=== PATIENT | male | born 1950 | race Caucasian/White ===

== ENCOUNTER 2016-09-30 10:14 | Inpatient (IN) | payer OTHER, MEDICARE ==
[2016-09-30] VITALS (11 sets, daily range): BP systolic 139–201; BP diastolic 69–94; PULSE 59–89; RESP 18–20; TEMP 97.3–98.4; O2SAT 90–99
[~2016-09-30] VITALS: Ht 167.6 cm; Wt 156.2 kg
[2016-09-30] MEDS ORDERED: SODIUM CHLOR 0.9% 1000 ML INJ 1,000 ML IV ONE (10:16)
[2016-09-30 10:42] LABS: BASOPHIL # 0.1 TH/MM3 (0-0.2); BASOPHIL % 0.7 % (0.0-2.0); EOSINOPHIL # 0.2 TH/MM3 (0-0.4); EOSINOPHIL % 2.6 % (0.0-4.0); HEMO FLAGS DIFF FINAL; LYMPH % 26.4 % (9.0-44.0); LYMPHOCYTE # 2.2 TH/MM3 (1.0-4.8); MEAN CELL VOLUME 91.7 FL (80.0-100.0); MEAN CORPUSCULAR HEMOGLOBIN 31.1 PG (27.0-34.0); MEAN CORPUSCULAR HGB CONC 33.9 % (32.0-36.0); MONO % 11.5 % (0.0-8.0); NEUT % 58.8 % (16.0-70.0); PLATELET COUNT 214 TH/MM3 (150-450); RED BLOOD COUNT 4.69 MIL/MM3 (4.50-5.90); RED CELL DISTRIBUTION WIDTH 12.8 % (11.6-17.2); WHITE BLOOD COUNT 8.5 TH/MM3 (4.0-11.0)
[2016-09-30 10:43] LABS: I-STAT POTASSIUM 3.7 MMOL/L (3.5-4.9); I-STAT SODIUM 141 MMOL/L (138-146)
--- NOTE | 2016-09-30 10:46 | RADRPT ---
EXAM DATE/TIME: 09/30/2016 10:27 [facility] COMPARISON: No previous studies available for comparison. INDICATIONS : Stroke alert, left sided weakness. RADIATION DOSE: 56.35 CTDIvol (mGy) This report was verbally relayed by Dr. Yane Rossi to Dr. Contreras at 10: 41 MEDICAL HISTORY : Unable to obtain. SURGICAL HISTORY : Unable to obtain. ENCOUNTER: Initial ACUITY: 1 day PAIN SCALE: 0/10 LOCATION: cranial TECHNIQUE: Multiple contiguous axial images were obtained of the head. Using automated exposure control and adj ustment of the mA and/or kV according to patient size, radiation dose was kept as low as reasonably a chievable to obtain optimal diagnostic quality images. FINDINGS: CEREBRUM: The ventricles are normal for age. No evidence of midline shift, mass lesion, hemorrhage or acute in farction. No extra-axial fluid collections are seen. POSTERIOR FOSSA: The cerebellum and brainstem are intact. The 4th ventricle is midline. The cerebellopontine angle i s unremarkable. Calcified tentorium and gallstone. EXTRACRANIAL: Left-sided orbital prosthesis. SKULL: The calvaria is intact. No evidence of skull fracture. CONCLUSION: No acute intracranial findings. Low Davis MD on September 30, 2016 at 10:40 Board Certified Radiologist. This report was verified electronically.
[2016-09-30 10:48] LABS: APTT (PATIENT) 22.9 SEC (24.3-30.1); INTERNATIONAL NORMALIZED RATIO 0.9 RATIO; PROTHROMBIN TIME - PATIENT 9.6 SEC (9.8-11.6)
[2016-09-30] MEDS ORDERED: IOHEXOL 350 MG/ML 10 ML VIAL (for RAD DIAG) IV ONE (10:52)
--- NOTE | 2016-09-30 11:17 | PD ---
HPI Chief Complaint: Stroke Alert Time Seen by Provider: 10:16 Travel History International Travel<30 days: No Contact w/Intl Traveler<30days: No Traveled to known affect area: No History of Present Illness HPI Patient 65-year-old male presents emergency department for evaluation of left- sided weakness for the past 30 minutes. Patient states this happened to him last week when he went seen in a hospital in [place] he was told he was at increased risk of stroke because of a "flap" in his carotid. Patient states he started having numbness and tingling of his left upper extremity while eating breakfast. He then noticed some weakness. On arrival is GCS 15. States also been having some minimal difficulty emulating. Symptoms been constant and moderate in severity. PFSH Past Medical History Cardiovascular Problems: Yes (right carotid dissection) High Cholesterol: Yes Diabetes: No GERD: Yes Hepatitis: Yes (B and C...treated for C) Hypertension: Yes Tetanus Vaccination: < 5 Years Influenza Vaccination: Yes ?: Not Past Surgical History Ear Surgery: Yes (glass left eye) Social History Alcohol Use: No (former) Tobacco Use: No (former) Substance Use: No (former) Allergies-Medications (Allergen,Severity, Reaction): Coded Allergies: No Known Allergies (Unverified , 09/30/16) Reported Meds & Prescriptions Reported Meds & Active Scripts Active Reported Ranitidine (Ranitidine HCl) 150 Mg Tab 150 Mg PO DAILY Atorvastatin (Atorvastatin Calcium) 40 Mg Tab 40 Mg PO HS Triamterene-Hydrochlorothiazide 37.5-25 Mg Cap 1 Cap PO DAILY Lyrica (Pregabalin) 100 Mg Cap 100 Mg PO DAILY Tramadol (Tramadol HCl) 50 Mg Tab 50 Mg PO Q8H PRN Review of Systems Except as stated in HPI: all other systems reviewed are Neg Physical Exam Narrative GENERAL: Well-developed well-nourished no apparent distress SKIN: Focused skin assessment warm/dry. HEAD: Atraumatic. Normocephalic. EYES: Pupils equal and round. No scleral icterus. No injection or drainage. ENT: No nasal bleeding or discharge. Mucous membranes pink and moist. NECK: Trachea midline. No JVD. CARDIOVASCULAR: Regular rate and rhythm. No murmur appreciated. No carotid bruits. RESPIRATORY: No accessory muscle use. Clear to auscultation. Breath sounds equal bilaterally. GASTROINTESTINAL: Abdomen soft, non-tender, nondistended. Hepatic and splenic margins not palpable. MUSCULOSKELETAL: No obvious deformities. No clubbing. No cyanosis. No edema. NEUROLOGICAL: Awake and alert and oriented, GCS 15, patient has pronator drift of left upper extremity, cranial nerves II through XII are grossly intact and nonfocal, no ataxia. No slurred speech. Total NIH stroke scale of 3. PSYCHIATRIC: Appropriate mood and affect; insight and judgment normal. Data Data Last Documented VS Vital Signs Date Time Temp Pulse Resp B/P Pulse Ox O2 Delivery O2 Flow Rate FiO2 09/30/16 11:46 76 18 164/73 98 Nasal Cannula 2 09/30/16 10:52 98.4 Orders Diet Npo (09/30/16 Lunch) Activity Bed Rest (09/30/16 ) Electrocardiogram (09/30/16 ) I-Stat Creatinine (09/30/16 10:16) I-Stat Profile (09/30/16 10:16) Prothrombin Time / Inr (Pt) (09/30/16 10:16) Act Partial Throm Time (Ptt) (09/30/16 10:16) Complete Blood Count With Diff (09/30/16 10:16) Fibrinogen (09/30/16 10:16) Creatine Kinase (Cpk) (09/30/16 10:16) Troponin I (09/30/16 10:16) Ua Includes Microscopic (09/30/16 10:16) Drug Screen, Random Urine (09/30/16 10:16) Type And Screen (09/30/16 10:16) Ct Brain W/O Iv Contrast(Rout) (09/30/16 ) Chest, Single Ap (09/30/16 ) Cta Neck W Iv Contrast W 3d (09/30/16 10:16) Consult Neurology (09/30/16 ) Blood Glucose (09/30/16 10:16) Ecg Monitoring (09/30/16 10:16) Neuro Checks Q2HX12,Q4H (09/30/16 10:16) Nursing Bedside Swallow Assess .ONCE (09/30/16 10:16) Iv Access Insert/Monitor (09/30/16 10:16) NPO (09/30/16 10:16) Oximetry (09/30/16 10:16) Oxygen Administration (09/30/16 10:16) Sodium Chlor 0.9% 1000 Ml Inj (Ns 1000 M (09/30/16 10:16) Resp Oxygen Lux C Titrat 1-4 L (09/30/16 10:16) Cath For Specimen (09/30/16 10:16) Cta Brain W Iv Contrast W 3d (09/30/16 ) (Hub Use Only)Inp Phy Cons/Ref (09/30/16 ) Iohexol 350 Inj (Omnipaque 350 Inj) (09/30/16 10:52) Aspirin Chew (Aspirin Chew) (09/30/16 12:00) Admit Order (Ed Use Only) (09/30/16 ) Labs Laboratory Tests Test 09/30/16 09/30/16 10:21 11:50 White Blood Count 8.5 TH/MM3 Red Blood Count 4.69 MIL/MM3 Hemoglobin 14.6 GM/DL Bedside Hemoglobin 15.0 G/DL Hematocrit 43.0 % Bedside Hematocrit 44.0 % Mean Corpuscular Volume 91.7 FL Mean Corpuscular Hemoglobin 31.1 PG Mean Corpuscular Hemoglobin 33.9 % Concent Red Cell Distribution Width 12.8 % Platelet Count 214 TH/MM3 Mean Platelet Volume 9.3 FL Neutrophils (%) (Auto) 58.8 % Lymphocytes (%) (Auto) 26.4 % Monocytes (%) (Auto) 11.5 % Eosinophils (%) (Auto) 2.6 % Basophils (%) (Auto) 0.7 % Neutrophils # (Auto) 5.0 TH/MM3 Lymphocytes # (Auto) 2.2 TH/MM3 Monocytes # (Auto) 1.0 TH/MM3 Eosinophils # (Auto) 0.2 TH/MM3 Basophils # (Auto) 0.1 TH/MM3 CBC Comment DIFF FINAL Differential Comment Prothrombin Time 9.6 SEC Prothromb Time International 0.9 RATIO Ratio Activated Partial 22.9 SEC Thromboplast Time Fibrinogen 392 mg/dL Bedside Sodium 141 MMOL/L Bedside Potassium 3.7 MMOL/L Bedside Chloride 102 MMOL/L Bedside Blood Urea Nitrogen 22 MG/DL Bedside Creatinine 1.0 MG/DL Bedside Glucose 100 MG/DL Total Creatine Kinase 130 U/L Troponin I LESS THAN 0.02 NG/ML Blood Type A POSITIVE Antibody Screen NEGATIVE Blood Bank Comment Urine Color YELLOW Urine Turbidity CLEAR Urine pH 7.5 Urine Specific [place] 1.027 Urine Protein NEG mg/dL Urine Glucose (UA) NEG mg/dL Urine Ketones NEG mg/dL Urine Occult Blood NEG Urine Nitrite NEG Urine Bilirubin NEG Urine Urobilinogen LESS THAN 2.0 MG/DL Urine Leukocyte Esterase NEG Urine RBC 1 /hpf Urine WBC 1 /hpf Urine Opiates Screen NEG Urine Barbiturates Screen NEG Urine Amphetamines Screen NEG Urine Benzodiazepines Screen NEG Urine Cocaine Screen NEG Urine Cannabinoids Screen NEG MDM Medical Decision Making Medical Screen Exam Complete: Yes Emergency Medical Condition: Yes Interpretation(s) EKG shows sinus rhythm with left bundle branch block without Sgarbossa criteria. This is an abnormal EKG. no previous EKG for comparison. Differential Diagnosis Acute stroke, TIA, carotid dissection, atrial fibrillation, carotid stenosis. Narrative Course Patient was roomed in emergency department, he does have left-sided weakness on arrival with an NIH score of 3. He was activated as a stroke alert. Noncontrast CT head was negative, his CTA of the neck and brain shows carotid stenosis of the left carotid which is inconsistent with his current presentation. Last 24 hours Impressions Head CTA 09/30/16 0000 Signed Impressions: Service Date/Time: Friday, September 30, 2016 10:27 - CONCLUSION: CT brain within normal limits. Low Davis MD Head CT 09/30/16 0000 Signed Impressions: Service Date/Time: Friday, September 30, 2016 10:27 - CONCLUSION: No acute intracranial findings. Low Davis MD The patient after arrival started resolving and by the time he was off the CT table his weakness and nearly completely resolved. He was reassessed sometime later and is now completely resolved. He does not meet criteria for TPA. Initially hypertensive to a systolic of 200 his systolic was reduced 260 systolic without intervention. No indication for further lowering acutely. His had a bed was flat. Discussed with Dr. Carpio multiple times who states that the patient will likely be started on Plavix and will need admission for further workup. She agrees to hold TPA at this time as the patient is completely resolved. He was given a full dose aspirin. He is stable for medical admission. Patient was discussed with [facility] hospitalist on-call. Procedures Procedure Narrative Aggregate critical care time was 35] minutes. Time to perform other separately billable procedures was not included in the critical care time. My time did not include minutes spent treating any other patients simultaneously or on activities that did not directly contribute to the patient's treatment. The services I provided to this patient were to treat and/or prevent clinically significant deterioration that could result in: , disability, organ failure I provided critical care services requiring my management, as noted below: Chart data review, documentation time, medication orders and management, vital sign assessments/reviewing monitor data, ordering and reviewing lab tests, ordering and interpreting/reviewing x-rays and diagnostic studies, care of the patient and discussion of the patient with the admitting physicians. Diagnosis Primary Impression: TIA (transient ischemic attack) Qualified Code: G45.9 - Transient cerebral ischemia, unspecified type Admitting Information Admitting Physician Requests: Observation Condition: Stable Rian Contreras MD September 30, 2016 11:17
--- NOTE | 2016-09-30 11:34 | RADRPT ---
EXAM DATE/TIME: 09/30/2016 10:27 [facility] COMPARISON: No previous studies available for comparison. INDICATIONS : Stroke alert, left sided weakness IV CONTRAST: 75 cc Omnipaque 350 (iohexol) IV; Cumulative dose for multiple exams. RADIATION DOSE: 15.02 CTDIvol (mGy); Combined studies MEDICAL HISTORY : None SURGICAL HISTORY : None. ENCOUNTER: Initial ACUITY: 1 day PAIN SCALE: 0/10 LOCATION: neck Elevated flow velocities and ICA/CCA ratios have been found to correlate with increased degrees of vessel stenosis, calculated as percentage of diameter relative to a normal segment of distal ICA/CCA. TECHNIQUE: Volumetric scanning was performed using a multirow detector CT scanner. The data was post processed with a variety of visualization algorithms including full-volume maximum intensity projection, multip lanar sliding thin-slab reformation, curved-planar reformation, and surface-rendering techniques. Us ing automated exposure control and adjustment of the mA and/or kV according to patient size, radiatio n dose was kept as low as reasonably achievable to obtain optimal diagnostic quality images. FINDINGS: Branching pattern of the great vessels is normal. Calcific plaque is seen in the origin of the nomin ate artery and left subclavian artery. RIGHT CAROTID: There is a combination of soft and hard plaque in the origin of the right internal carotid compromisi ng lumen approximately 50-60%. Small ulceration is present. LEFT CAROTID: Similar findings are seen on the left with combination of hard and soft plaque. There is no dissecti on flap identified. VERTEBRALS: Both vertebral arteries are patent. CONCLUSION: 1. Calcific vascular disease as described above. Stenosis is not felt to be hemodynamically signifi cant. 2. There is however a large component of soft plaque evident. Sampson Rossi MD FACR on September 30, 2016 at 11:11 Board Certified Radiologist. This report was verified electronically.
[2016-09-30 11:37] LABS: CREATINE KINASE 130 U/L (39-308)
--- NOTE | 2016-09-30 11:39 | RADRPT ---
EXAM DATE/TIME: 09/30/2016 10:41 [facility] COMPARISON: No previous studies available for comparison. INDICATIONS : Stroke Alert. Patient complains of dizziness, weakness, numbness, and tingling in left arm. Pt. has h ad a similar episode a week ago. MEDICAL HISTORY : None. SURGICAL HISTORY : None. ENCOUNTER: Initial ACUITY: 1 day PAIN SCORE: 0/10 LOCATION: Bilateral chest FINDINGS: Lungs are under aerated with mild interstitial edema. Heart is minimally enlarged. There is no alve olar consolidation, pleural effusion, or pneumothorax. CONCLUSION: Under aerated with mild cardiomegaly. Patient may have mild interstitial edema present. Sampson Rossi MD FACR on September 30, 2016 at 11:16 Board Certified Radiologist. This report was verified electronically.
[2016-09-30] MEDS ORDERED: TRAM50TA PO (11:44)
[2016-09-30] MEDS ORDERED: RANI150T PO (11:44)
[2016-09-30] MEDS ORDERED: LYRI100C PO (11:44)
[2016-09-30] MEDS ORDERED: ATOR40TA16 PO (11:44)
[2016-09-30] MEDS ORDERED: TRIA37.53 PO (11:44)
--- NOTE | 2016-09-30 11:47 | RADRPT ---
EXAM DATE/TIME: 09/30/2016 10:27 [facility] COMPARISON: No previous studies available for comparison. INDICATIONS : Stroke alert, left sided weakness IV CONTRAST: 75 cc Omnipaque 350 (iohexol) IV ; Cumulative dose for multiple exams. RADIATION DOSE: 15.02 CTDIvol (mGy) ; Combined studies MEDICAL HISTORY : None SURGICAL HISTORY : None. ENCOUNTER: Initial ACUITY: 1 day PAIN SCALE: 0/10 LOCATION: cranial TECHNIQUE: Volumetric scanning was performed using a multi-row detector CT scanner. The data was post processed with a variety of visualization algorithms including full volume maximum intensity projection, multi -planar sliding thin slab reformation, curved planar reformation, and surface rendering techniques. Using automated exposure control and adjustment of the mA and/or kV according to patient size, radiat ion dose was kept as low as reasonably achievable to obtain optimal diagnostic quality images. FINDINGS: There is excellent visualization of the major intracranial arteries out to the second-order branch ve ssels. There is no evidence for aneurysm, vessel truncation or stenosis, and no evidence for vascula r malformation. CONCLUSION: CT brain within normal limits. Low Davis MD on September 30, 2016 at 11:37 Board Certified Radiologist. This report was verified electronically.
[2016-09-30] MEDS ORDERED: ASPIRIN 81 MG CHEW TAB CHEW ONE (12:00)
[2016-09-30 12:19] LABS: AMPHETAMINE, URINE NEG (NEG); BARBITURATES, URINE NEG (NEG); COCAINE, URINE NEG (NEG)
[2016-09-30 12:24] LABS: BLOOD, URINE NEG (NEG); GLUCOSE,URINE NEG (NEG); KETONE, URINE NEG (NEG); NITRITE,URINE NEG (NEG); PH, URINE 7.5 (5.0-8.5); URINE COLOR YELLOW (YELLW/STRAW)
[2016-09-30] MEDS ORDERED: GLUCAGON 1 MG/ML VIAL OTHER PRN (12:45)
[2016-09-30] MEDS ORDERED: DEXTROSE 50% IN WATER 50 ML VIAL(D50) IV PUSH PRN (12:45)
[2016-09-30] MEDS ORDERED: SODIUM CHLORIDE 0.9% FLUSH 5 ML FLUSH IV FLUSH PRN (12:45)
[2016-09-30] MEDS ORDERED: ENALAPRILAT 1.25 MG/ML VIAL IV PUSH PRN (13:00)
--- NOTE | 2016-09-30 13:37 | HHI.HP ---
HPI Service [facility] Primary Care Physician Jose Eduardo Johns MD Admission Diagnosis TIA Diagnoses: Chief Complaint: left arm numbness/weakness Travel History International Travel<30 Days: No Contact w/Intl Traveler <30 Da: No Traveled to Known Affected Are: No History of Present Illness Written by Sun Muller, acting as scribe for Dr. Reagan on 09/30/16 at 13: 51. 65-year-old male with history of hypertension, hepatitis C s/p treatment, recent TIA, carotid artery "flap", and left eye prosthesis, presents with acute onset of left arm numbness and weakness. The patient reports around 9am this morning 09/30 while having breakfast he started experiencing left arm numbness and weakness. The numbness was worse at the left 3rd, 4th, and 5th digits. He denies any other numbness or weakness throughout any other extremities. He denies any lightheadedness, dizziness, blurred vision, dysphasia/aphasia, chest pain, shortness of breath, or abdominal complaints. He does state that he didn' t feel "quite right". He had his friend transport him to the hospital. The symptoms lasted approximately 30minutes and has now mostly resolved, still with some minimal paresthesia at the left 3rd, 4th, 5th digits. He reports a recent history of TIA, approximately 1 week ago on September 24 he was in [place] when he experienced acute left arm weakness. He went to the hospital at that time. He states his imaging was mostly normal except for a slight "tear" in one of his carotids. He was started on baby aspirin and blood pressure medication and discharged home. The patient filled his prescriptions after arriving back in [place] and has now been back on his medications for the last 3-4 days. The patient is from [place] however has been living down here for 1.5years. His PCP is Dr. Delgado. Review of Systems Except as stated in HPI: all other systems reviewed are Neg Past Family Social History Past Medical History Hypertension Blind left eye Carotid artery "tear" per the patient Hepatitis C, treated with Harvoni, completed 12weeks of treatment 3 months ago Past Surgical History Left eye removed from piece of metal in 1992 Dental extractions Reported Medications Aspirin 81mg daily Lyrica 100mg tid Tramadol 50mg q8h prn Triamterene-HCTZ 37.5-25mg daily Zantac 150mg daily Allergies: Coded Allergies: No Known Allergies (Unverified , 09/30/16) Active Ordered Medications Current Medications Medications (Trade) Dose Ordered Sig/Rae Route Start Time Stop Time Status Last Admin (NS 1000 ml Inj) 1,000 ml @ 70 mls/hr [id number] ONCE IV 09/30/16 10:16 10/01/16 00:33 09/30/16 11:19 (NS Flush) 2 ml BID IV FLUSH 09/30/16 21:00 (NS Flush) 2 ml UNSCH PRN IV FLUSH 09/30/16 12:45 (Aspirin Chew) 81 mg DAILY PO 10/01/16 09:00 (NovoLOG SUPPLEMENTAL SCALE) 1 ACHS SQ 09/30/16 16:00 (D50w (Vial) Inj) 50 ml UNSCH PRN IV PUSH 09/30/16 12:45 (Glucagon Inj) 1 mg UNSCH PRN OTHER 09/30/16 12:45 (Vasotec Inj) 1.25 mg Q6H PRN IV PUSH 09/30/16 13:00 (Lipitor) 40 mg HS PO 09/30/16 21:00 (Pepcid) 20 mg DAILY PO 10/01/16 09:00 Family History Father with stroke in his 50s-60s and small MIs Mother with stoke also in her 50s-60s Social History Smoked tobacco 1PPD for 25years, quit 8years ago Denies any alcohol or drugs, quit 20 years ago History of IVDU and Cocaine over 20years ago 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 SKIN: No rashes, ecchymoses or lesions. Cool and dry. HEAD: Atraumatic. Normocephalic. EYES: Left eye prosthesis. Right eye pupil round and reactive. EOMI. No scleral icterus. No injection or drainage. ENT: Nose without bleeding, purulent drainage or septal hematoma. Airway patent. NECK: Trachea midline. No JVD. Supple, nontender. CARDIOVASCULAR: Regular rate and rhythm without murmurs, gallops, or rubs. RESPIRATORY: Clear to auscultation. Breath sounds equal bilaterally. No wheezes , rales, or rhonchi. GASTROINTESTINAL: Abdomen soft, non-tender, nondistended. . No guarding. Normoactive bowel sounds x4. MUSCULOSKELETAL: Extremities without clubbing, cyanosis, or edema. No joint tenderness, effusion, or edema noted. No calf tenderness. Negative Homans sign bilaterally. NEUROLOGICAL: Awake and alert. Cranial nerves II through XII intact. Motor and sensory grossly within normal limits. 5/5 muscle strength in all muscle groups. Normal speech. Patellar DTR 2+ bilaterally. Distal upper and lower extremity sensation equal and intact. No facial droop/lid lag/tongue deviation. Laboratory Laboratory Tests Test 09/30/16 09/30/16 10:21 11:50 White Blood Count 8.5 Red Blood Count 4.69 Hemoglobin 14.6 Bedside Hemoglobin 15.0 Hematocrit 43.0 Bedside Hematocrit 44.0 Mean Corpuscular Volume 91.7 Mean Corpuscular Hemoglobin 31.1 Mean Corpuscular Hemoglobin 33.9 Concent Red Cell Distribution Width 12.8 Platelet Count 214 Mean Platelet Volume 9.3 Neutrophils (%) (Auto) 58.8 Lymphocytes (%) (Auto) 26.4 Monocytes (%) (Auto) 11.5 Eosinophils (%) (Auto) 2.6 Basophils (%) (Auto) 0.7 Neutrophils # (Auto) 5.0 Lymphocytes # (Auto) 2.2 Monocytes # (Auto) 1.0 Eosinophils # (Auto) 0.2 Basophils # (Auto) 0.1 CBC Comment DIFF FINAL Differential Comment Prothrombin Time 9.6 Prothromb Time International 0.9 Ratio Activated Partial 22.9 Thromboplast Time Fibrinogen 392 Bedside Sodium 141 Bedside Potassium 3.7 Bedside Chloride 102 Bedside Blood Urea Nitrogen 22 Bedside Creatinine 1.0 Bedside Glucose 100 Total Creatine Kinase 130 Troponin I LESS THAN 0.02 Blood Type A POSITIVE Antibody Screen NEGATIVE Blood Bank Comment Urine Color YELLOW Urine Turbidity CLEAR Urine pH 7.5 Urine Specific [place] 1.027 Urine Protein NEG Urine Glucose (UA) NEG Urine Ketones NEG Urine Occult Blood NEG Urine Nitrite NEG Urine Bilirubin NEG Urine Urobilinogen LESS THAN 2.0 Urine Leukocyte Esterase NEG Urine RBC 1 Urine WBC 1 Urine Opiates Screen NEG Urine Barbiturates Screen NEG Urine Amphetamines Screen NEG Urine Benzodiazepines Screen NEG Urine Cocaine Screen NEG Urine Cannabinoids Screen NEG Result Diagram: 09/30/16 1021 Imaging Last Impressions Head CTA 09/30/16 0000 Signed Impressions: Service Date/Time: Friday, September 30, 2016 10:27 - CONCLUSION: CT brain within normal limits. Low Davis MD Head CT 09/30/16 0000 Signed Impressions: Service Date/Time: Friday, September 30, 2016 10:27 - CONCLUSION: No acute intracranial findings. Low Davis MD Assessment and Plan Problem List: (1) TIA (transient ischemic attack) ICD Code: G45.9 Status: Acute Assessment and Plan 65-year-old male with history of hypertension, hepatitis C s/p treatment, recent TIA, carotid artery "flap", and left eye prosthesis, presents with acute onset of left arm numbness and weakness. TIA: acute neurological deficit with acute onset LUE numbness/weakness, now symptoms improved. Head CT images reviewed, unremarkable. Head CTA unremarkable. -Consult neurology -Check echo, EEG, and brain MRI -Check lipid profile, started on statin -Check HgbA1c -NIHSS, neuro checks, monitor on telemetry -PT/OT/ST eval -continue patient's aspirin, neurology added plavix Carotid Artery Stenosis: Neck CTA shows combination of soft and hard plaque in the origin of the right ICA compromising lumen approx. 50-60%; Small ulceration is present. Left internal carotid similar with combination of hard and soft plaque; no dissection flap identified. It appears stenosis is not felt to be hemodynamically significant, there is however a large component of soft plaque evident. -continue aspirin, plavix added as above -outpatient follow up with vascular surgery, repeat carotid U/S in 6months Hypertension: chronic -hold patient's triamterene-HCTZ for now -allow permissive hypertension -IV Vasotec prn SBP >200 DVT Prophylaxis: teds/SCDs Discussed Condition With Patient, ER MD, Dr. Carpio Physician Certification 2 Midnight Certification Type: Admission for Inpatient Services Order for Inpatient Services The services are ordered in accordance with Medicare regulations or non- Medicare payer requirements, as applicable. In the case of services not specified as inpatient-only, they are appropriately provided as inpatient services in accordance with the 2-midnight benchmark. Estimated LOS (days): 2 days is the estimated time the patient will need to remain in the hospital, assuming treatment plan goals are met and no additional complications. Post-Hospital Plan: Home Notes: This note was transcribed by scribe [Sun Muller]. I, Dr. Keanu Reagan personally performed the history, physical exam, and medical decision making; and confirmed the accuracy of the information in the transcribed note. Authenticated by Dr. Keanu Reagan on 09/30/16 at 19:34. Sun Muller PA-C September 30, 2016 13:37 Keanu Reagan MD September 30, 2016 19:34
[2016-09-30] MEDS: CLOPIDOGREL 75 MG TAB PO SCH (14:29)
--- NOTE | 2016-09-30 15:16 | MB ---
cc: MAHENDRA FREEMAN M.D. DATE OF CONSULTATION: 09/30/2016 1949 REASON FOR CONSULTATION Stroke alert, onset of symptoms approximately 30 minutes prior to arrival. HISTORY OF PRESENT ILLNESS This is a 65-year-old man who presents to emergency department for evaluation of left-sided weakness for the past 30 minutes. He states it happened to him about a week ago when he was in [place] and was fishing, had a massage prior and ended up with left-sided weakness and he was told that he had a possible flap for dissection of the carotid. They put him on aspirin. His workup was unremarkable and he was discharged. Today he started having numbness, tingling in left upper extremity, not really in the leg, but he has chronic neuropathy, weakness and clumsiness. I believe his NIH when he came in was 3. No slurred speech. He did go to CAT scan and by the time he came back his symptoms were nearly resolved and hence, he was not a candidate for TPA due to the fact of rapidly resolving symptoms. He states his fingers still feel a little tingly but he is near baseline. PAST MEDICAL HISTORY 1. Hyperlipidemia. 2. Reflux. 3. Hepatitis B and C, treated for C. 4. Hypertension. 5. Blind left eye, has artificial eye. SOCIAL HISTORY He used to drink heavily in the past, no longer, does not smoke or use any drugs any longer. ALLERGIES None reported. MEDICATION Home medications: He took aspirin for the last week since he was discharged from [place]. PHYSICAL EXAMINATION VITAL SIGNS: Temperature is 98.4, pulse 65, respiratory rate 19, blood pressure is 139/76, sating at 99% on 2 liters nasal cannula. NECK: His neck is supple. There are no bruits. HEART: Regular. LUNGS: Lungs are clear. NEUROLOGIC EXAMINATION He is awake, alert and oriented and fluent. His right pupil is reactive. Left eye is prosthetic. Does have extraocular movements. Face symmetrical. His tongue is midline. Normal hearing. Motor back there is no drift. No leg lag. He is a little clumsier on the left on [id number] but no past-pointing. His wind tunnel mechanic is symmetrical 5/5 throughout. DTRs are intact. Toes withdraws. Sensory is abnormal in his feet, that is his baseline and slightly to light touch in his fingertips. Gait is withheld. LABORATORY DATA His labs are reviewed. CBC is really unremarkable. Coag panel, his PTT is 22.9, PT 9.6, INR 0.9, fibrinogen 392. Chemistries glucose is 100, A1c is pending. Urine unremarkable. Toxicology was negative. IMAGING STUDIES Head CTA was performed and it was without any intracranial stenosis. CT of the head did not show any acute findings either. He did have a CTA of the carotids basically showing calcific vascular disease, right carotid soft and hard plaque at the origin of the right internal carotid, 50-60% stenosis, small ulceration present, left carotid, similar findings on the left with hard and soft plaque, no dissection flap identified. He does have however, what they described as a large component of soft plaque evident. IMPRESSION A 65-year-old man with stroke-like symptoms now resolved with likely from the right hemisphere with some carotid disease plaque, soft and hard plaque, no evidence reported of dissection. At this point in time workup should be ongoing. Will get an MRI of the brain. Will go ahead and put him on Plavix. Get a lipid panel and check his hemoglobin A1c. Lovenox and SCDs for DVT prophylaxis. Watch his blood pressure, treat should his systolic go over 210, diastolic over 110. Can maintain him on aspirin therapy, just a baby aspirin with the Plavix. Get a 2-D Echo. I am concerned also that the patient may have ongoing paroxysmal atrial fibrillation that is not diagnosed. He would need some type of Holter monitoring versus a prolonged monitor at discharge as well. Continue him on telemetry and further recommendations to be made. MD VALERIE Pastrana/PAMELA /1:33 PM /2:48 PM
[2016-09-30 16:06] LABS: HEMOGLOBIN A1a 1.1 %; HEMOGLOBIN A1b 1.6 %; HEMOGLOBIN Ao 85.2 %; HEMOGLOBIN LA1C 2.1 %
[2016-09-30] MEDS: INSULIN ASPART SUPPLEMENTAL SCALE SQ SCH ×2 (17:00→21:00)
--- NOTE | 2016-09-30 17:07 | EC ---
Study Study Date:09/30/2016 STUDY CONCLUSIONS SUMMARY LEFT VENTRICLE: The cavity size was normal. Wall thickness was normal. Systolic function was mildly to moderately reduced. The estimated ejection fraction was in the range of 40% to 45%. Wall motion was normal; there were no regional wall motion abnormalities. If LV function is below 40, please consider prescribing an ACEI or ARB or document rationale for non-use. PROCEDURE DATA STUDY STATUS: Elective. Procedure: Transthoracic echocardiography. Image quality was good. Scanning was performed from the parasternal, apical, and subcostal acoustic windows. Study completion: The patient tolerated the procedure well. Transthoracic echocardiography. M-mode, complete 2D, complete spectral Doppler, and color Doppler. Patient status: Inpatient. CARDIAC ANATOMY LEFT VENTRICLE: The cavity size was normal. Wall thickness was normal. Systolic function was mildly to moderately reduced. The estimated ejection fraction was in the range of 40% to 45%. Wall motion was normal; there were no regional wall motion abnormalities. AORTIC VALVE: Trileaflet; normal thickness leaflets. Doppler: Transvalvular velocity was within the normal range. There was no stenosis. No regurgitation. AORTA: Aortic root: The aortic root was normal in size. MITRAL VALVE: Structurally normal valve. Doppler: Transvalvular velocity was within the normal range. There was no evidence for stenosis. Trace to mild regurgitation. LEFT ATRIUM: The atrium was normal in size. RIGHT VENTRICLE: The cavity size was normal. Wall thickness was normal. PULMONIC VALVE: Doppler: Transvalvular velocity was within the normal range. There was no evidence for stenosis. No regurgitation. TRICUSPID VALVE: Structurally normal valve. Doppler: Transvalvular velocity was within the normal range. No regurgitation. PULMONARY ARTERY: The main pulmonary artery was normal-sized. Systolic pressure was within the normal range. RIGHT ATRIUM: The atrium was normal in size. PERICARDIUM: There was no pericardial effusion. SYSTEMIC VEINS: Inferior vena cava: The vessel was normal in size. BASIC MEASUREMENTS ADULT Normal Left ventricle LV internal dimension, ED, chordal level, 50.5 mm 43-52 PLAX LV internal dimension, ES, chordal level, *41.9 mm 23-38 PLAX Fractional shortening, chordal level, PLAX *17 % >29 LV posterior wall thickness, ED 6.11 mm IVS/LVPW ratio, ED *1.69 <1.3 Ventricular septum Septal thickness, ED 10.3 mm Left atrium Anterior-posterior dimension 34 mm Right ventricle RV internal dimension, ED, PLAX 19.3 mm 19-38 DOPPLER MEASUREMENTS ADULT Normal Main pulmonary artery Pressure, S 10 mm Hg =30 Mitral valve Peak E-wave velocity 51.3 cm/s Peak A-wave velocity 70.1 cm/s Peak E/A ratio 0.7 Tricuspid valve Regurgitant peak velocity 110 cm/s Peak RV-RA gradient, S 5 mm Hg Maximal regurgitant velocity 110 cm/s Systemic veins Estimated CVP 5 mm Hg Right ventricle RV pressure, S 10 mm Hg <30 LEGEND: Mean values are shown as u=mean value. Asterisk (*) norris values outside specified normal range. Prepared and signed by Bryan Ray [id number]
--- NOTE | 2016-09-30 17:59 | RADRPT ---
EXAM DATE/TIME: 09/30/2016 15:47 [facility] COMPARISON: No previous studies available for comparison. INDICATIONS : Left sided weakness. CVA. MEDICAL HISTORY : Gastroesophageal reflux disease. Hepatitis B. Hepatitis C. Hypertension. SURGICAL HISTORY : Tonsillectomy. Left eye removal. ENCOUNTER: Subsequent ACUITY: 1 day PAIN SCORE: 0/10 LOCATION: head. TECHNIQUE: Multiplanar, multisequence MRI of the brain was performed without contrast. FINDINGS: CEREBRUM: Several small foci of restricted diffusion in the right parietal cortex. Correlating hyperintensities are seen on the T2-weighted images. No evidence of mass effect. No evidence of hemorrhage. No midlin e shift. Scattered chronic periventricular and subcortical white matter hyperintensities. POSTERIOR FOSSA: The cerebellum and brainstem are intact. The 4th ventricle is midline. The cerebellopontine angle is unremarkable. The cerebellar tonsils are normal in position. DIFFUSION IMAGING: No focal areas of restricted diffusion are seen. No evidence of acute infarction. EXTRACRANIAL: The visualized portions of the orbits and paranasal sinuses are unremarkable. CONCLUSION: Several scattered small acute infarcts in the right parietal cortex. No mass effect or midline shift. No evidence of hemorrhage. Low Davis MD on September 30, 2016 at 17:55 Board Certified Radiologist. This report was verified electronically.
[2016-09-30] MEDS: SODIUM CHLORIDE 0.9% FLUSH 5 ML FLUSH IV FLUSH SCH (21:00)
[2016-09-30] MEDS: ATORVASTATIN 40 MG TAB PO SCH (21:22)
[2016-10-01] VITALS (8 sets, daily range): BP systolic 128–153; BP diastolic 75–93; PULSE 61–81; RESP 20–22; TEMP 96.1–97.7; O2SAT 91–94
[2016-10-01] MEDS: INSULIN ASPART SUPPLEMENTAL SCALE SQ SCH ×4 (06:23→20:38)
[2016-10-01 08:36] LABS: HDL CHOLESTEROL 41.3 MG/DL (40.0-60.0)
[2016-10-01] MEDS: SODIUM CHLORIDE 0.9% FLUSH 5 ML FLUSH IV FLUSH SCH ×2 (09:00→20:35)
[2016-10-01] MEDS: FAMOTIDINE 20 MG TAB PO SCH (09:22)
[2016-10-01] MEDS: ASPIRIN 81 MG CHEW TAB PO SCH (09:22)
[2016-10-01] MEDS: CLOPIDOGREL 75 MG TAB PO SCH (09:22)
--- NOTE | 2016-10-01 12:04 | EKG ---
Date Performed: 09/30/2016 Time Performed: 10:58:40 PTAGE: 65 years EKG: Sinus rhythm LEFT BUNDLE BRANCH BLOCK ABNORMAL ECG NO PREVIOUS TRACING DOCTOR: Baldemar Francisco Interpretating Date/Time 10/01/2016 12:03:37
[2016-10-01] MEDS: traMADol HCL 50 MG TAB PO PRN (17:41)
[2016-10-01] MEDS ORDERED: PREGABALIN 100 MG CAP PO ONE (19:45)
[2016-10-01] MEDS: ATORVASTATIN 40 MG TAB PO SCH (20:34)
--- NOTE | 2016-10-01 23:46 | HHI.PR ---
Subjective Remarks Patient reports that left upper extremity weakness is improving, but still present. Denies any chest pain or shortness of breath. Objective Vital Signs Date Time Temp Pulse Resp B/P Pulse Ox O2 Delivery O2 Flow Rate FiO2 10/01/16 20:00 96.3 81 20 149/83 94 10/01/16 16:12 96.7 64 22 142/77 94 10/01/16 16:12 64 10/01/16 12:06 96.7 81 22 128/75 93 10/01/16 11:25 61 10/01/16 09:07 96.4 69 22 153/93 93 10/01/16 08:29 92 21 10/01/16 04:00 96.1 65 20 148/76 91 10/01/16 00:00 97.7 65 20 138/75 91 I/O 09/30/16 09/30/16 09/30/16 10/01/16 10/01/16 10/01/16 07:00 15:00 23:00 07:00 15:00 23:00 Intake Total 240 ml 240 ml Balance 240 ml 240 ml Intake Oral 240 ml 240 ml # Voids 1 3 # Bowel Movements 0 1 Result Diagram: 09/30/16 1021 Objective Remarks GENERAL: patient lying in bed. Appears comfortable. SKIN: Warm and dry. HEAD: Normocephalic. EYES: No scleral icterus. No injection or drainage. NECK: Supple, trachea midline. No JVD. CARDIOVASCULAR: Regular rate and rhythm without murmurs, gallops, or rubs. RESPIRATORY: Breath sounds equal bilaterally. No accessory muscle use. GASTROINTESTINAL: Abdomen soft, non-tender, nondistended. MUSCULOSKELETAL: No cyanosis, or edema. neurologic. Left-sided weakness BACK: Nontender without obvious deformity. No CVA tenderness. A/P Assessment and Plan == 10/01/16 // acute infarcts right parietal cortex. //Carotid artery stenosis With left-sided weakness -EEG still pending -Will need to follow-up with vascular surgery for evaluation. //Echocardiogram with reduced ejection fraction. Ejection fraction 40-45%. Patient will need to follow-up with cardiology as outpatient for this, as well as to rule out possibility A. fib.. - 65-year-old male with history of hypertension, hepatitis C s/p treatment, recent TIA, carotid artery "flap", and left eye prosthesis, presents with acute onset of left arm numbness and weakness. TIA: acute neurological deficit with acute onset LUE numbness/weakness, now symptoms improved. Head CT images reviewed, unremarkable. Head CTA unremarkable. -Consult neurology -Check echo, EEG, and brain MRI -Check lipid profile, started on statin -Check HgbA1c -NIHSS, neuro checks, monitor on telemetry -PT/OT/ST eval -continue patient's aspirin, neurology added plavix Carotid Artery Stenosis: Neck CTA shows combination of soft and hard plaque in the origin of the right ICA compromising lumen approx. 50-60%; Small ulceration is present. Left internal carotid similar with combination of hard and soft plaque; no dissection flap identified. It appears stenosis is not felt to be hemodynamically significant, there is however a large component of soft plaque evident. -continue aspirin, plavix added as above -outpatient follow up with vascular surgery, repeat carotid U/S in 6months Hypertension: chronic -hold patient's triamterene-HCTZ for now -allow permissive hypertension -Blood pressure acceptable. Continue IV Vasotec prn SBP >200 DVT Prophylaxis: teds/SCDs Discussed Condition With Patient, ER , Dr. Carpio Discharge Planning when cleared by neurology. Keanu Reagan MD Oct 01, 2016 23:46
--- NOTE | 2016-10-01 23:48 | RADRPT ---
EXAM DATE/TIME: 10/01/2016 23:11 [facility] COMPARISON: No previous studies available for comparison. INDICATIONS : Transient ischemic attack. MEDICAL HISTORY : Hypertension. Hepatitis C. Gastroesophageal reflux disease. Cerebrovascular acc ident. Head trauma. Hearing loss.Right carotid dissection. Alcohol use. SURGICAL HISTORY : Tonsillectomy. Left glass eye. ENCOUNTER: Initial ACUITY: 2 days PAIN SCORE: 0/10 LOCATION: Bilateral neck PEAK SYSTOLIC VELOCITIES (cm/sec): ICA/CCA RATIO: Right: 1.0 Left: 0.8 ICA: Right: 110 Left: 91 CCA: Right: 111 Left: 116 ECA: Right: 95 Left: 140 VERTEBRAL: Right: 58 antegrade Left: 55 antegrade Elevated flow velocities and ICA/CCA ratios have been found to correlate with increased degrees of vessel stenosis, calculated as percentage of diameter relative to a normal segment of distal ICA/CCA FINDINGS: Ultrasound of the carotid arteries was performed bilaterally using real-time Doppler and color Dopple r imaging. Examination of the right carotid artery demonstrates mild fibrous plaque within the bifurcation. No w aveform abnormalities are identified and no spectral broadening is seen. Examination of the left zhang tid artery demonstrates mild fibrous plaque within the bulb. No waveform abnormalities are identified and no spectral broadening is seen. There is antegrade flow in both vertebral arteries. CONCLUSION: No evidence of hemodynamically significant lesion. Timothy Baumann MD on October 01, 2016 at 23:46 Board Certified Radiologist. This report was verified electronically.
[2016-10-02] VITALS (7 sets, daily range): BP systolic 140–167; BP diastolic 75–100; PULSE 63–72; RESP 18–20; TEMP 97–97.5; O2SAT 93–94
[2016-10-02] MEDS: INSULIN ASPART SUPPLEMENTAL SCALE SQ SCH ×3 (06:11→16:00)
[2016-10-02] MEDS: traMADol HCL 50 MG TAB PO PRN ×2 (06:16→14:34)
[2016-10-02] MEDS: CLOPIDOGREL 75 MG TAB PO SCH (08:55)
[2016-10-02] MEDS: ASPIRIN 81 MG CHEW TAB PO SCH (08:55)
[2016-10-02] MEDS: FAMOTIDINE 20 MG TAB PO SCH (08:55)
[2016-10-02] MEDS: SODIUM CHLORIDE 0.9% FLUSH 5 ML FLUSH IV FLUSH SCH (08:57)
[2016-10-02] MEDS ORDERED: PREGABALIN 100 MG CAP PO SCH (09:00)
[2016-10-02] MEDS ORDERED: LISI2.5T3 PO (10:14)
[2016-10-02] MEDS ORDERED: HYDR12.57 PO (10:14)
[2016-10-02] MEDS ORDERED: ATOR40TA16 PO (10:14)
[2016-10-02] MEDS ORDERED: PLAV75TA29 PO (10:14)
[2016-10-02] MEDS ORDERED: ASPI81CH25 PO (10:14)
[2016-10-02] MEDS ORDERED: HYDROCHLOROTHIAZIDE 12.5 MG CAP PO ONE (10:15)
[2016-10-02] MEDS ORDERED: LISINOPRIL 5 MG TAB PO ONE (10:15)
--- NOTE | 2016-10-02 10:23 | PD.VS.CON ---
History of Present Illness Chief Complaint: left arm weakness that has resolved. Consult Requested by: History of Present Illness 65 yr old male with hx of left arm weakness that resolved. Denies A. fugax. Past/Family/Social History Past Medical History Hypertension Hyperlipidemia Home Medications Active Scripts Hydrochlorothiazide 12.5 Mg Cap12.5 Mg PO DAILY #30 CAP Ref 0 Prov:Keanu Reagan MD 10/02/16 Lisinopril 2.5 Mg Tab2.5 Mg PO DAILY #30 TAB Ref 0 Prov:Keanu Reagan MD 10/02/16 Aspirin (Aspirin Low Strength)81 Mg Chew81 Mg PO DAILY 30 Days Prov:Keanu Reagan MD 10/02/16 Clopidogrel (Plavix)75 Mg Tab75 Mg PO DAILY 30 Days Prov:Keanu Reagan MD 10/02/16 Atorvastatin 40 Mg Tab80 Mg PO HS #60 TAB Ref 0 Prov:Keanu Reagan MD 10/02/16 Reported Medications Ranitidine 150 Mg Vij168 Mg PO DAILY #30 TAB Ref 0 09/30/16 Triamterene-Hydrochlorothiazide 37.5-25 Mg Cap1 Cap PO DAILY #30 CAP Ref 0 09/30/16 Pregabalin (Lyrica)100 Mg Nit889 Mg PO DAILY #30 CAP Ref 0 09/30/16 Tramadol 50 Mg Tab50 Mg PO Q8H PRN (PAIN) Ref 0 09/30/16 Discontinued Reported Medications Atorvastatin 40 Mg Tab40 Mg PO HS #30 TAB Ref 0 09/30/16 Coded Allergies: No Known Allergies (Unverified , 09/30/16) Physical Exam Vitals/I&O Date Time Temp Pulse Resp B/P Pulse Ox O2 Delivery O2 Flow Rate FiO2 10/02/16 08:21 97.1 67 18 167/100 94 10/02/16 04:00 97.5 71 20 140/75 94 10/02/16 00:00 97.3 67 20 142/76 93 10/01/16 20:00 71 10/01/16 20:00 96.3 81 20 149/83 94 10/01/16 16:12 96.7 64 22 142/77 94 10/01/16 16:12 64 10/01/16 12:06 96.7 81 22 128/75 93 10/01/16 11:25 61 10/02/16 10/02/16 10/02/16 07:00 15:00 23:00 Intake Total 240 ml Balance 240 ml Neuro: A&O x 3 no cranial nerve deficits. Motor and sensory intact. Neck: supple no carotid bruits. Heart: regular Lungs: CTA Abdomen: soft and non-distended. Vascular: radial pulses palpable bilaterally. Extremities: warm Last 48 hours Impressions Carotid Artery Ultrasound 10/01/16 0000 Signed Impressions: Service Date/Time: October 23:11 - CONCLUSION: No evidence of hemodynamically significant lesion. Timothy Baumann MD Neck CTA 09/30/16 1016 Signed Impressions: Service Date/Time: Friday, September 30, 2016 10:27 - CONCLUSION: 1. Calcific vascular disease as described above. Stenosis is not felt to be hemodynamically significant. 2. There is however a large component of soft plaque evident. Sampson Rossi MD FACR Assessment and Plan Assessment: (1) TIA (transient ischemic attack) Status: Acute Plan This is a 65 year old male with multifocal parietal infarcts by MRI on the right. Left hand weakness resolved except some paresthesias. CTA shows about a 50% stenosis of the right ICA and less than 50% stenosis by velocity criteria with fibrous plaque. Patient with modest carotid artery disease on the right. Medical management would be appropriate and better than surgical treatment with this level of disease. Should be worked up for paroxysmal afib as well. Medical management to be added to aspirin (should be a statin and plavix). Have follow up in 6 months in office with duplex Carotid US. Discussed this with the patient. Jose Ramon Moss DO, FACS [facility] /Jose Ramon Santiago DO Oct 02, 2016 10:23
[2016-10-02] MEDS ORDERED: PILL SPLITTER OTHER PRN (10:30)
--- NOTE | 2016-10-02 12:46 | MG ---
cc: GIOVANNI BARROW MD Lab No: Date: 10/02/2016 Age: Sex: M Race: DATE OF [birth year][address] Carpio. READING PHYSICIAN: Dr. Barrow. MEDICAL HISTORY: 1. Left-sided weakness 2. History of right carotid dissection. 3. Gastroesophageal reflux disease 4. Hypertension. MEDICATIONS 1. Aspirin. 2. Lipitor. 3. Plavix. 4. Pepcid. DESCRIPTION The patient was awake the background activity was 8-9 Hz alpha located posteriorly superimposed by beta activity.During the recording the patient became drowsy with slowing and dropped out of the posterior background rhythm, replaced by theta rhythm and the patient transitioned to stage II sleep with appearance of vertex weight and K complexes and sleep spindles.Intermittent slowing of the background activity. Photic stimulation did not elicit a driving response. Hyperventilation was not done. There were no electrographic seizures or epileptiform discharges noted during the recording. INTERPRETATION - This is an abnormal awake and sleep EEG recording with intermittent slowing of the background which may indicate mild encephalopathy.The absence of electrographic seizures or epileptiform discharges does not rule out a diagnosis of epilepsy. Clinical correlation is recommended. Giovanni Barrow MD [facility]/ /11:14 AM /12:36 PM MTDD
--- NOTE | 2016-10-02 22:18 | HHI.DS ---
Discharge Summary Admission Date September 30, 2016 at 12:45 Discharge Date: Oct 02, 2016 Admitting Diagnosis TIA (1) TIA (transient ischemic attack) ICD Code: G45.9 Procedures no invasive procedures performed. Brief History - From Admission 65-year-old male with history of hypertension, hepatitis C s/p treatment, recent TIA, carotid artery "flap", and left eye prosthesis, presents with acute onset of left arm numbness and weakness. The patient reports around 9am this morning 09/30 while having breakfast he started experiencing left arm numbness and weakness. The numbness was worse at the left 3rd, 4th, and 5th digits. He denies any other numbness or weakness throughout any other extremities. He denies any lightheadedness, dizziness, blurred vision, dysphasia/aphasia, chest pain, shortness of breath, or abdominal complaints. He does state that he didn' t feel "quite right". He had his friend transport him to the hospital. The symptoms lasted approximately 30minutes and has now mostly resolved, still with some minimal paresthesia at the left 3rd, 4th, 5th digits. He reports a recent history of TIA, approximately 1 week ago on September 24 he was in [place] when he experienced acute left arm weakness. He went to the hospital at that time. He states his imaging was mostly normal except for a slight "tear" in one of his carotids. He was started on baby aspirin and blood pressure medication and discharged home. The patient filled his prescriptions after arriving back in [place] and has now been back on his medications for the last 3-4 days. The patient is from [place] however has been living down here for 1.5years. His PCP is Dr. Delgado. CBC/BMP: 09/30/16 1021 Significant Findings Laboratory Tests Test 09/30/16 10:21 Monocytes (%) (Auto) 11.5 % (0.0-8.0) Monocytes # (Auto) 1.0 TH/MM3 (0-0.9) Prothrombin Time 9.6 SEC (9.8-11.6) Activated Partial 22.9 SEC Thromboplast Time (24.3-30.1) Fibrinogen 392 mg/dL (227-377) Bedside Glucose 100 MG/DL (60-95) Troponin I LESS THAN 0.02 NG/ML (0.02-0.05) Imaging Last Impressions Carotid Artery Ultrasound 10/01/16 0000 Signed Impressions: Service Date/Time: October 23:11 - CONCLUSION: No evidence of hemodynamically significant lesion. Timothy Baumann MD Neck CTA 09/30/16 1016 Signed Impressions: Service Date/Time: Friday, September 30, 2016 10:27 - CONCLUSION: 1. Calcific vascular disease as described above. Stenosis is not felt to be hemodynamically significant. 2. There is however a large component of soft plaque evident. Sampson Rossi MD FACR Head CTA 09/30/16 0000 Signed Impressions: Service Date/Time: Friday, September 30, 2016 10:27 - CONCLUSION: CT brain within normal limits. Low Davis MD Head CT 09/30/16 0000 Signed Impressions: Service Date/Time: Friday, September 30, 2016 10:27 - CONCLUSION: No acute intracranial findings. Low Davis MD Chest X-Ray 09/30/16 0000 Signed Impressions: Service Date/Time: Friday, September 30, 2016 10:41 - CONCLUSION: Under aerated with mild cardiomegaly. Patient may have mild interstitial edema present. Sampson Rossi MD FACR Brain MRI 09/30/16 0000 Signed Impressions: Service Date/Time: Friday, September 30, 2016 15:47 - CONCLUSION: Several scattered small acute infarcts in the right parietal cortex. No mass effect or midline shift. No evidence of hemorrhage. Low Davis MD PE at Discharge GENERAL: patient lying in bed. Appears comfortable.exam unchanged from day prior SKIN: Warm and dry. HEAD: Normocephalic. EYES: No scleral icterus. No injection or drainage. NECK: Supple, trachea midline. No JVD. CARDIOVASCULAR: Regular rate and rhythm without murmurs, gallops, or rubs. RESPIRATORY: Breath sounds equal bilaterally. No accessory muscle use. GASTROINTESTINAL: Abdomen soft, non-tender, nondistended. MUSCULOSKELETAL: No cyanosis, or edema. neurologic. Left-sided weakness BACK: Nontender without obvious deformity. No CVA tenderness. Hospital Course == 10/01/16 // acute infarcts right parietal cortex. //Carotid artery stenosis With left-sided weakness -EEG still pending -Will need to follow-up with vascular surgery for evaluation. //Echocardiogram with reduced ejection fraction. Ejection fraction 40-45%. Patient will need to follow-up with cardiology as outpatient for this, as well as to rule out possibility A. fib.. - 65-year-old male with history of hypertension, hepatitis C s/p treatment, recent TIA, carotid artery "flap", and left eye prosthesis, presents with acute onset of left arm numbness and weakness. TIA: acute neurological deficit with acute onset LUE numbness/weakness, now symptoms improved. Head CT images reviewed, unremarkable. Head CTA unremarkable. -Consult neurology -Check echo, EEG, and brain MRI -Check lipid profile, started on statin -Check HgbA1c -NIHSS, neuro checks, monitor on telemetry -PT/OT/ST eval -continue patient's aspirin, neurology added plavix Carotid Artery Stenosis: Neck CTA shows combination of soft and hard plaque in the origin of the right ICA compromising lumen approx. 50-60%; Small ulceration is present. Left internal carotid similar with combination of hard and soft plaque; no dissection flap identified. It appears stenosis is not felt to be hemodynamically significant, there is however a large component of soft plaque evident. -continue aspirin, plavix added as above -outpatient follow up with vascular surgery, repeat carotid U/S in 6months Hypertension: chronic -hold patient's triamterene-HCTZ for now -allow permissive hypertension -Blood pressure acceptable. Continue IV Vasotec prn SBP >200 DVT Prophylaxis: teds/SCDs Discussed Condition With Patient, ER MD, Dr. Carpio Discharge Planning when cleared by neurology. Pt Condition on Discharge: Good Discharge Disposition: Discharge Home Discharge Time: > 30 minutes Discharge Instructions DIET: Follow Instructions for: Heart Healthy Diet Activities you can perform: Regular-No Restrictions Follow up Referrals: Cardiology - 1 Month Neurology - 2 Weeks with Micaela Carpio MD PCP Follow-up - 1 Week with Jose Eduardo Johns MD Vascular Surgery - 6 Months with Jose Ramon Moss V. DO New Medications: Hydrochlorothiazide (Hydrochlorothiazide) 12.5 Mg Cap 12.5 MG PO DAILY blood pressure #30 Ref 0 CAP Lisinopril (Lisinopril) 2.5 Mg Tab 2.5 MG PO DAILY #30 Ref 0 TAB Aspirin (Aspirin Low Strength) 81 Mg Chew 81 MG PO DAILY prevent stroke Days 30 EA Clopidogrel (Plavix) 75 Mg Tab 75 MG PO DAILY prevent stroke Days 30 TAB Changed Medications: Atorvastatin (Atorvastatin) 40 Mg Tab 80 MG PO HS Cholesterol Management #60 Ref 0 TAB (Changed from: 40 MG; 30) Continued Medications: Pregabalin (Lyrica) 100 Mg Cap 100 MG PO DAILY #30 Ref 0 CAP Ranitidine (Ranitidine) 150 Mg Tab 150 MG PO DAILY Heartburn Management #30 Ref 0 TAB Tramadol (Tramadol) 50 Mg Tab 50 MG PO Q8H PRN PAIN Ref 0 TAB Discontinued Medications: Triamterene-Hydrochlorothiazide (Triamterene-Hydrochlorothiazide) 37.5-25 Mg Cap 1 CAP PO DAILY #30 Ref 0 CAP Keanu Reagan MD Oct 02, 2016 22:18 Keanu Reagan MD Oct 02, 2016 22:18
[2016-10-03] MEDS ORDERED: LISINOPRIL 5 MG TAB PO SCH (09:00)
[2016-10-03] MEDS ORDERED: HYDROCHLOROTHIAZIDE 12.5 MG CAP PO SCH (09:00)
--- NOTE | 2016-10-05 16:31 | HM ---
Date Performed: 10/01/2016 Time Performed: 18:05:00 HOOKUP DATE: 10/01/16 06:05:00 PM Elvia ANALYSIS START TIME: 10/01/2016 6:10:00 PM ANALYSIS END TIME: 10/02/2016 6:13:59 PM PATIENT AGE: 65 PATIENT HEIGHT PATIENT WEIGHT DRUG LIST PATIENT DIAGNOSIS TEST NARRATIVE: The patient's average heart rate was 74 BPM. No episodes of tachycardia wer e noted. No episodes of bradycardia were noted. No pauses exceeding 2.0 seconds were noted. 1 ventricular ectopics, which represented < 1% of the total beat count, were noted. The highest vent ricular ectopic frequency occurred from 07:00 AM to 08:00 AM Fri. During this time 1 VE(s) occurred. Ventricular ectopics were observed as 1 isolated beat(s) only. No couplets or runs were noted. 1361 supraventricular ectopics, which represented 1% of the total beat count, were noted. The highe st supraventricular ectopic frequency occurred from 04:00 PM to 05:00 PM Fri. During this time 327 S VE(s) occurred. No episodes of ST depression (defined as -1.0 mm or more) were noted in channel [address] . Multiple episodes of [address] depression (defined as -1.0 mm or more) were noted in channel 2. The max imum depression of -1.8 mm occurred at 10:11:37 AM Fri. No episodes of ST depression (defined as -1. 0 mm or more) were noted in channel 3. TEST INTERPRETATION: Patient is in Sinus rhythm throughout the recording, with an average heart rate of 74, minimum heart rate of 57, peak heart rat e of 120. There are frequent atrial premature beats, including short runs of SVT, none lasting for l onger than 6 beats. There are only rare PVCs noted. There are no pauses noted. There is no diary to r brennenw. In conclusion, sinus rhythm throughout the recording, with atrial ectopy as described. Signed by : Umesh Kenney
== END 2016-10-02 17:33 | disposition home or self-care (01) | DRG 66 ==
LOC: NEPC 10:14 → NEDA 12:45 → OBSVTOIN 12:46 → N05A 16:10
PROVIDERS: ADMIT Family Medicine; ATTEND Family Medicine
DX: I63.8 Other cerebral infarction (principal); G62.9 Polyneuropathy, unspecified; I10 Essential (primary) hypertension; K21.9 Gastro-esophageal reflux disease without esophagitis; E78.5 Hyperlipidemia, unspecified; R20.8 Other disturbances of skin sensation; I65.21 Occlusion and stenosis of right carotid artery; R29.703 NIHSS score 3; Z90.01 Acquired absence of eye; Z86.73 Personal history of transient ischemic attack (TIA), and cerebral infarction without residual deficits; Z97.0 Presence of artificial eye; Z86.19 Personal history of other infectious and parasitic diseases; Z87.891 Personal history of nicotine dependence
CPT/HCPCS: 70450; 70496; 70498; 70551; 71010; 80061; 80307; 81001; 82435; 82550; 82565; 82947; 82948; 83036; 84132; 84295; 84484; 84520; 85025; 85384; 85610; 85730; 86850; 86900; 86901; 93005; 93225; 93226; 93306; 93880; 95819; 99291; G8987-GO; G8987-GP; G8988-GO; G8988-GP; G8989-GO; G8996-GN; G8997-GN; G8998-GN; J7030; Q9967